=== PATIENT | male | born 2000 | race African-American/Black ===

== ENCOUNTER 2020-05-05 17:44 | Emergency (ER) | payer OTHER, SELFPAY ==
[2020-05-05 17:46] VITALS: BP 145/81; PULSE 65; RESP 18; TEMP 36.7; O2SAT 100; BMI 23.7
--- NOTE | 2020-05-05 18:17 | RAD_ITS ---
STUDY: X-RAY - LEFT KNEE REASON FOR EXAM: Male, 19 years old. FALL. TORN MENISCUS OF LEFT KNEE. TECHNIQUE: 4 view(s) of the knee. COMPARISON: None. FINDINGS: Normal visualized distal femur. Normal visualized proximal tibia and fibula. Normal proximal tibiofibular articulation. There is no demonstrated fracture. Normal medial femorotibial compartment. Normal lateral femorotibial compartment. Normal patellofemoral articulation. There is no demonstrated joint effusion. The soft tissue structures are unremarkable. RAD/Knee 4 or More Views IMPRESSION: Normal x-ray examination of the knee. Electronically Signed: Jermaine Lyles MD at 18:50 EST , Service support ,
--- NOTE | 2020-05-05 18:17 | RAD_ITS ---
STUDY: X-RAY - RIGHT FOOT CLINICAL: Male, 19 years old. FALL. PAIN AND SWELLING ON TOP AND LATERAL SIDE OF RIGHT FOOT AND ANKLE. TECHNIQUE: 3 view(s) of the foot. COMPARISON: Right ankle x-ray on the same day FINDINGS: A small avulsive fractures present at the head and dorsal surface of the talus with the displaced bony fragment seen directly above this region. The overlying soft tissues are also swollen and a small joint effusion is present. Normal talus, calcaneus, and tarsal bones. Normal visualized subtalar, talonavicular, calcaneocuboid, tarsal and tarsometatarsal articulations. Normal metatarsi. Normal metatarsophalangeal joint of the great toe. Normal tibial and fibular sesamoid bones. Normal interphalangeal joint of the great toe. Normal phalanges of the great toe. Normal second through fifth metatarsophalangeal joints. Normal interphalangeal joints and phalanges of the lesser toes. No visualized fractures of the foot. RAD/Foot min 3 Views IMPRESSION: 1. Normal x-ray examination of the foot. 2. Avulsive fracture on the dorsal surface of the anterior process of the talus. Electronically Signed: Jermaine Lyles MD at 18:51 EST , Service support ,
--- NOTE | 2020-05-05 18:17 | ED.DCSUM_ITS ---
History of Present Illness Chief Complaint: Lower Extremity Injury Informant: Patient Narrative: Patient comes to the emergency part with 2 lower extremity injuries. The first is his left knee. He was doing the takeoff of the long jump at [employer] practice when he felt pain in the left knee. He states it has been intermittently giving out. He notes pain laterally sometimes catching. He notes some swelling. He has had prior meniscal tear of the right and states this feels very similar. He did mention it to his boxing trainer. The second injury occurred today when the left knee gave out and he fell causing an inversion injury to the right foot and ankle. He states he felt a pop. He notes swelling anterior to the lateral malleolus across the dorsum of the foot. Past Medical History - Allergies and Home Meds Allergies/Adverse Reactions: Allergies Penicillins Allergy (Verified 05/05/20 17:48) NEEDS FOLLOW-UP Past Medical History: None Surgical History: - - Right knee meniscal injury Lives: - - [employer] student Smoking Status: Never smoker Drugs: None Review of Systems General: Denies: Chills, Fever, Sweats Eyes: Denies: Visual changes - bilaterally, Diplopia ENT: Denies: Rhinorrhea, Sore throat Cardiovascular: Denies: Chest pain, Palpitations Respiratory: Denies: Dyspnea, Cough, Dyspnea on exertion Gastrointestinal: Denies: Abdominal pain, Nausea, Vomiting, Diarrhea, Melena, Hematochezia Genitourinary: Denies: Dysuria, Hematuria, Frequency Musculoskeletal: Reports: Extremity Pain. Denies: Back pain Skin: Denies: Rash, Wounds Neurological: Denies: Headache, Weakness, Numbness Physical Exam Vital Signs/Narrative: Vital Signs Temp Pulse Resp BP Pulse Ox 05/05/20 17:46 98.0 F 65 18 145/81 H 100 Inital Vital Signs reviewed: Yes General: Well nourished, Well developed, No Acute Distress Head: Normocephalic, Atraumatic Eyes: Perrl, EOMI ENT: Moist mucous membranes, No rhinorrhea Neck: Supple, Nontender Cardiovascular: Regular rate, Regular rhythm, No murmurs Respiratory: No distress, CTA bilaterally, Chest nontender Abdomen: Soft, Nontender, Nondistended, Normal bowel sounds Back: Nontender, Normal Inspection Extremities: Tenderness - The left knee appears to have a small effusion. Tender along the lateral joint line. Ligaments appear stable bilaterally, - - The left foot and ankle demonstrates swelling across the dorsum of the foot with some ecchymosis. There is tenderness over the anterior aspect of the lateral malleolus. No fifth metatarsal pain. No fibular head pain. Skin: Normal color, No rash Neurological: Alert, Oriented x3, Cranial nerves II-XII grossly intact, Normal Strength, Normal Sensation Psychological: Normal affect, Normal Mood Diagnostic/Tx/Re-eval Clinical Impression(s) from Imaging Studies Ankle X-Ray 05/05/20 18:17 IMPRESSION: 1. A small avulsive fractures present at the head and dorsal surface of the talus with the displaced bony fragment seen directly above this region. The overlying soft tissues are also swollen and a small joint effusion is present. Electronically Signed: Jermaine Lyles MD at 18:49 EST , Service support , Foot X-Ray 05/05/20 18:17 IMPRESSION: 1. Normal x-ray examination of the foot. 2. Avulsive fracture on the dorsal surface of the anterior process of the talus. Electronically Signed: Jermaine Lyles MD at 18:51 EST , Service support , Knee X-Ray 05/05/20 18:17 IMPRESSION: Normal x-ray examination of the knee. Electronically Signed: Jermaine Lyles MD at 18:50 EST , Service support , - Medical Decision Making My interpretation of the the left knee plain films demonstrates no acute fracture. Patient will be referred to orthopedics and given crutches for this. My interpretations of the right foot and ankle demonstrates a avulsion fracture off the talus age-indeterminate. However given his mechanism is swelling and his pain most likely acute. I will give him a walking boot. We are going to use crutches for this and for the left knee. ED Disposition - Plan for ED Patient: Disposition: Home or Assisted Living Diagnosis: Left knee injury, Fracture, talus closed Instructions: ED Fracture, Foot, ED Meniscal Injury Knee Poss Referrals: Garfield Randall DO [STAFF PHYSICIAN] - As soon as possible
--- NOTE | 2020-05-05 18:17 | RAD_ITS ---
STUDY: X-RAY - RIGHT ANKLE REASON FOR EXAM: Male, 19 years old. FALL. PAIN AND SWELLING ON TOP AND LATERAL SIDE OF RIGHT FOOT TECHNIQUE: 3 view(s) of the ankle. COMPARISON: None. FINDINGS: A small avulsive fractures present at the head and dorsal surface of the talus with the displaced bony fragment seen directly above this region. The overlying soft tissues are also swollen and a small joint effusion is present. Normal visualized distal tibia and fibula. Normal medial and lateral malleoli. Normal tibiotalar articulation and ankle mortise. Normal visualized talus and calcaneus. The visualized subtalar, talonavicular, calcaneocuboid and tarsal articulations are normal. There is no demonstrated fracture. The soft tissue structures are unremarkable. RAD/Ankle min 3 Views IMPRESSION: 1. A small avulsive fractures present at the head and dorsal surface of the talus with the displaced bony fragment seen directly above this region. The overlying soft tissues are also swollen and a small joint effusion is present. Electronically Signed: Jermaine Lyles MD at 18:49 EST , Service support ,
[2020-05-05 19:46] VITALS: RESP 18
== END 2020-05-05 19:47 | disposition home or self-care (01) ==
PROVIDERS: Emergency Provider Emergency Medicine
DX: S92.121A Displaced fracture of body of right talus, initial encounter for closed fracture (principal); S89.92XA Unspecified injury of left lower leg, initial encounter; X58.XXXA Exposure to other specified factors, initial encounter; Y93.57 Activity, non-running track and field events; Y92.9 Unspecified place or not applicable; Y99.8 Other external cause status
CPT/HCPCS: 73564; 73610; 73630; 99284

== ENCOUNTER → 2020-06-02 12:35 | Outpatient (CLI) | payer OTHER, SELFPAY ==
[2020-05-05 17:46] VITALS: BMI 23.7
--- NOTE | 2020-06-02 12:50 | MRI_ITS ---
STUDY: MRI LEFT KNEE REASON FOR EXAM: Lateral knee pain, football injury several months ago with reinjury 2 weeks ago. TECHNIQUE: Standardized fat and water weighted pulse sequences were obtained in all 3 orthogonal planes. COMPARISON: Radiographs 05/05/2020. FINDINGS: Normal medial meniscus. Normal hyaline cartilage of the medial femorotibial compartment. Normal medial femoral condyle and tibial plateau. Normal medial collateral ligamentous complex (MCL). Normal distal semimembranosus, gracilis and semitendinosus tendons. There is a complex tear of the posterior horn of the lateral meniscus (proton-density sagittal images 29-35) including a radial component at the root (T2 coronal image 9). Normal hyaline cartilage of the lateral femorotibial compartment. Normal lateral femoral condyle and tibial plateau. Normal proximal tibiofibular articulation. Normal lateral collateral (fibular) ligament. Normal popliteus tendon. Normal biceps femoris tendon. Normal anterior cruciate ligament (ACL). Normal posterior cruciate ligament (PCL). Normal congruent patellofemoral articulation. There is a small chondral tear of the lateral patellar facet (T2 axial image 12). Normal medial and lateral patellar retinaculum. Normal quadriceps tendon. Normal patellar tendon. Normal Hoffa''s fat pad. There is a small joint effusion. There is a small popliteal cyst (T2 sagittal images 6, 7). The otherwise visualized osseous structures are unremarkable. MRI/Lower Ext Joint Only (Routine) IMPRESSION: Lateral meniscal tear. Small chondral tear of the patella. Small joint effusion. Small popliteal cyst. Electronically Signed: Raudel Ireland MD at 14:01 EDT Tel , Service support ,
== END ==
PROVIDERS: Referring Provider Physician Assistant; Visit Provider Physician Assistant
DX: S83.8X2A Sprain of other specified parts of left knee, initial encounter (principal); S83.282A Other tear of lateral meniscus, current injury, left knee, initial encounter; X58.XXXA Exposure to other specified factors, initial encounter; Y93.61 Activity, american tackle football
CPT/HCPCS: 73721